=== PATIENT | female | born 1980 | race Caucasian/White ===

== ENCOUNTER → 2021-05-13 | Outpatient (CLI) | payer OTHER ==
--- NOTE | 2021-05-13 09:39 | RAD ---
EXAM: Lumbar spine, 2 views. HISTORY: Pain. COMPARISON: None. FINDINGS: 2 views of the lumbar spine are obtained. 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 There is instrumented posterior spinal fusion and disc space fusion device placement at L5 -S1. The S1 screws are fractured. There is no listhesis. The vertebral bodies are normal in height. T here is degenerative endplate remodeling, disc space narrowing and facet arthropathy at L5-S1. IMPRESSION: 1. Instrumented posterior spinal fusion and disc space fusion device placement at L5-S1. The S1 screw s are fractured. 2. Degenerative change at L5-S1. Electronically signed by: Liana Madrigal MD (05/13/2021 9:36 AM) [id number]
== END ==
LOC: RAD 08:56
PROVIDERS: ATTEND Family Medicine
DX: M47.817 Spondylosis without myelopathy or radiculopathy, lumbosacral region (principal); M48.07 Spinal stenosis, lumbosacral region; Z02.71 Encounter for disability determination
CPT/HCPCS: 72100

== ENCOUNTER 2021-05-31 12:57 | Emergency (ER) | payer MEDICAID ==
[~2021-05-31] VITALS: Ht 157.5 cm; Wt 86.0 kg
--- NOTE | 2021-05-31 14:52 | PHYS DOC ---
General Adult EDM: Chief Complaint: ABDOMINAL PAIN HPI: HPI: Patient is a 41-year-old female who presents emergency department today for right upper quadrant pain that started yesterday. Patient is also reporting nausea. She rates her pain 7 out of 10. Is worse after eating. No treatment prior to arrival. Her vital signs are stable and she is in no acute distress. Patient denies any vomiting, diarrhea, urinary symptoms, blood in her stools or vomit, fevers. (ALYSSA ALTAMIRANO APRN) Review of Systems: Review of Systems: Constitutional: See HPI GI: See HPI : See HPI (ALYSSA ALTAMIRANO APRN) Heart Score: C/O Chest Pain: N/A Risk Factors: Risk Factors: DM, Current or recent (<one month) smoker, HTN, HLP, family history of CAD, obesity. Risk Scores: Score 0 - 3: 2.5% MACE over next 6 weeks - Discharge Home Score 4 - 6: 20.3% MACE over next 6 weeks - Admit for Clinical Observation Score 7 - 10: 72.7% MACE over next 6 weeks - Early Invasive Strategies (ALYSSA ALTAMIRANO APRN) Current Medications: Current Medications Medications (Trade) Dose Ordered Sig/Christy Start Time Stop Time Status Last Admin Dose Admin Fentanyl Citrate (Fentanyl 2ml Vial) 50 mcg 1X ONCE 05/31/21 15:00 05/31/21 15:01 UNV Ondansetron HCl (Zofran) 4 mg 1X ONCE 05/31/21 15:00 05/31/21 15:01 UNV Sodium Chloride 1,000 ml @ 1,000 mls/hr Q1H 05/31/21 15:00 05/31/21 15:59 UNV (ALYSSA ALTAMIRANO APRN) Physical Exam: PE: Constitutional: Well developed, well nourished, no acute distress, non-toxic a ppearance. [] HENT: Normocephalic, atraumatic, bilateral external ears normal, oropharynx moist, no oral exudates, nose normal. [] Eyes: PERRL, EOMI, conjunctiva normal, no discharge. [] Neck: Normal range of motion, no stridor Cardiovascular:Heart rate regular rhythm, no murmur [] Lungs & Thorax: Bilateral breath sounds clear to auscultation [] Abdomen: Bowel sounds normal, soft, tenderness reported with palpation of right upper quadrant, abdomen soft, no rigidity, no guarding, no masses, no pulsatile masses. [] Skin: Warm, dry, no erythema, no rash. [] Back: Normal range of motion Extremities: No tenderness, no cyanosis, no clubbing, ROM intact, no edema. [] Neurologic: Alert and oriented X 3, normal motor function, normal sensory function, no focal deficits noted. [] Psychologic: Affect normal, judgement normal, mood normal. [] (ALYSSA ALTAMIRANO APRN) EKG: EKG: EKG performed by ER staff at 1506 shows sinus rhythm, no STEMI read by Dr. Pop [] (ALYSSA ALTAMIRANO APRN) Radiology/Procedures: Radiology/Procedures: [] (ALYSSA ALTAMIRANO APRN) Course & Med Decision Making: Course & Med Decision Making Pertinent Labs and Imaging studies reviewed. (See chart for details) [] Patient presents to the emergency department for right upper quadrant pain that is worse after eating with nausea. Work-up in the ER consisted of blood work, urinalysis, EKG and CT imaging of abdomen and pelvis. Patient treated wit h IV fluids, nausea and pain medication. Blood work and imaging negative. Patient was noted to have a urinary tract infection, treated with antibiotic. I discussed with patient all findings and diagnostic testing as well as the need to follow-up with PCP for further evaluation and treatment or return to the ER if any new or worsening symptoms. Strict return precautions were also discussed at length. Patient voiced understanding and agreement with the plan. Patient is hemodynamically stable at the time of disposition. (ALYSSA ALTAMIRANO APRN) Course & Med Decision Making Attending addendum: I did not evaluate this patient while in the emergency department, I reviewed the chart as above. Presented with postprandial right upper quadrant pain, with right upper quadrant tenderness palpation. CT, LFTs, WBC were reassuringly normal. I called the patient and she states her pain was improved. I did advise her that there is a risk of missed gallstones on CT imaging that may be found with ultrasound. I asked her to follow-up with her primary care physician and she was amenable to this. I asked her that if her pain becomes constant, her pain worsens, or if she has fevers/chills associated with her pain that she return to the emergency department for consideration of ultrasound imaging. She voiced understanding of return precautions. (ARTIS POP MD) Dragon Disclaimer: Dragon Disclaimer: This electronic medical record was generated, in whole or in part, using a voice recognition dictation system. (ALYSSA ALTAMIRANO APRN) Departure Departure Impression: Primary Impression: Urinary tract infection Qualified Codes: N30.00 - Acute cystitis without hematuria Disposition: HOME / SELF CARE / HOMELESS Condition: GOOD Referrals: NO PCP (PCP) Patient Instructions: Urinary Tract Infection Additional Instructions: You were seen in the emergency department today for abdominal pain. Your blood work was unremarkable and the CT imaging of your abdomen and pelvis did not show any acute findings. You were noted to have a urinary tract infection this will be treated with an antibiotic. Please start and finish the antibiotic completely. Increase your fluids. Avoid any bladder irritants like caffeine, sugary beverages or alcohol. Please follow-up with your primary care provider tomorrow regarding your ER visit. Return to the emergency department if you develop worsening of your pain, intractable nausea or vomiting, high fevers refractory to treatment, severe pain with urination, hematuria. Scripts Cephalexin (KEFLEX) 500 Mg Capsule 1 CAP PO BID for 7 Days, #14 CAP 0 Refills Prov: ALYSSA ALTAMIRANO APRN 05/31/21 ALYSSA ALTAMIRANO APRN May 31, 2021 14:52 ARTIS POP MD May 31, 2021 17:48
[2021-05-31 14:58] LABS: BILIRUBIN,URINE NEGATIVE (NEG); CLARITY,URINE CLOUDY; COLOR,URINE YELLOW; NITRITE,URINE POSITIVE (NEG); PROTEIN,URINE NEGATIVE (NEG-TRACE)
[2021-05-31 15:20] LABS: BACTERIA,URINE MANY /HPF (0-FEW); WBC,URINE >40 /HPF (0-4)
[2021-05-31 15:20] LABS: BASO % 0 % (0-3); EOS # 0.1 x10^3/uL (0.0-0.7); EOS % 2 % (0-3); HEMATOCRIT 41.7 % (36.0-47.0); HEMOGLOBIN 13.9 g/dL (12.0-15.5); LYMPH # 2.3 x10^3/uL (1.0-4.8); LYMPH % 37 % (24-48); MEAN CORPUSCULAR HEMOGLOBIN 27 pg (25-35); MEAN CORPUSCULAR HGB CONC 33 g/dL (31-37); MEAN CORPUSCULAR VOLUME 81 fL (79-100); MONO # 0.5 x10^3/uL (0.0-1.1); MONO % 9 % (0-9); NEUT # 3.3 x10^3/uL (1.8-7.7); NEUT % 52 % (31-73); PLATELET COUNT 238 x10^3/uL (140-400); RED BLOOD COUNT 5.15 x10^6/uL (3.50-5.40); RED CELL DISTRIBUTION WIDTH 13.6 % (11.5-14.5); WHITE BLOOD COUNT 6.2 x10^3/uL (4.0-11.0)
[2021-05-31 15:29] LABS: CALCIUM 8.9 mg/dL (8.5-10.1); CREATININE 0.9 mg/dL (0.6-1.0); GFR 69.3; POTASSIUM 4.1 mmol/L (3.5-5.1)
[2021-05-31] MEDS ORDERED: ONDANSETRON PF 4 MG/2 ML VIAL. IVP ONE (15:30)
[2021-05-31] MEDS ORDERED: IV NORMAL SALINE 1000ML BAG 1,000 ML IV SCH (15:30)
[2021-05-31] MEDS ORDERED: fentaNYL PF VIAL 100 MCG/2 ML VIAL IVP ONE (15:30)
[2021-05-31 15:36] LABS: ALBUMIN 3.5 g/dL (3.4-5.0); ALBUMIN/GLOBULIN RATIO 0.9 (1.0-1.7); TOTAL BILIRUBIN 0.2 mg/dL (0.2-1.0); TOTAL PROTEIN 7.2 g/dL (6.4-8.2)
[2021-05-31] MEDS ORDERED: IOHEXOL 300 MG/ML 100ML VIAL. IV ONE (15:45)
--- NOTE | 2021-05-31 16:18 | RAD ---
PQRS Compliance Statement: One or more of the following individualized dose reduction techniques were utilized for this examinat ion: 1. Automated exposure control 2. Adjustment of the mA and/or kV according to patient size 3. Use of iterative reconstruction technique CT ABDOMEN+PELVIS W Clinical Indication: Reason: ruq pain /. History of appendectomy and hysterectomy. Comparison: None. Technique: Helical CT imaging of the abdomen and pelvis is performed after 75 cc of Omnipaque 300 IV contrast. Oral contrast not administered. Findings: There is bilateral dependent atelectasis. Cardiac size normal. The liver, gallbladder, spleen, pancreas, adrenal glands, abdominal aorta, and kidneys are normal. The stomach is unremarkable. There is no small bowel obstruction. The sigmoid colon is redundant. The re is no colon wall thickening. Appendectomy. No abdominal adenopathy or free fluid. The urinary bladder is decompressed, otherwise normal. Hysterectomy. No pelvic free fluid is identifi ed. Posterior fusion of L5-S1. No acute bone abnormality. IMPRESSION: No acute abdominal or pelvic abnormality. Electronically signed by: Roman Guerrier MD (05/31/2021 4:16 PM) [facility]
[2021-05-31] MEDS ORDERED: CEPH500C PO (16:44)
[2021-05-31 17:13] VITALS: BP 122/60
--- NOTE | 2021-06-01 04:22 | EKG ---
[facility] [address] [place] [address] Test Date: 2021-05-31 Test Time: 15:06:11 Pat Name: ROGER HERNANDEZ Department: Room: Gender: F Senior Business Analyst: [id number] : 1980 Requested By: ALYSSA ALTAMIRANO Order Number: [id number] Reading MD: Eber Pierre MD Measurements Intervals [place] Rate: 72 P: 48 NV: 164 QRS: -34 QRSD: 102 T: -11 QT: 398 QTc: 437 Interpretive Statements SINUS RHYTHM NON-SPECIFIC ST/T CHANGES LAD Electronically Signed On 06-02-2021 20:45:51 KARATE BLACK BELT by Eber Pierre MD
== END 2021-05-31 17:14 | disposition home or self-care (01) ==
LOC: ER 12:57
DX: N30.00 Acute cystitis without hematuria (principal)
CPT/HCPCS: 36415; 74177; 80053; 81001; 83690; 84484; 85025; 87086; 93005; 96361; 96374; 96375; 99285; J2405; J3010; J7030; Q9967; 87077; 87186